=== PATIENT | male | born 1975 | race Caucasian/White ===

== ENCOUNTER 2018-08-08 16:47 | Emergency (ER) | payer SELFPAY ==
[~2018-08-08] VITALS: Ht 170.2 cm; Wt 65.8 kg
[2018-08-08 17:25] VITALS: BP 136/87
--- NOTE | 2018-08-08 17:28 | NUR ---
pt w/ vss ambulates w/ steady gait to the lobby to wait for a bed.
--- NOTE | 2018-08-08 18:24 | NUR ---
pt sittting in lobby w/ vss. no new complaints at this time. will contninue to monitor.
--- NOTE | 2018-08-08 18:49 | NUR ---
called, no response
--- NOTE | 2018-08-08 18:52 | NUR ---
pt called again at this time, no response
--- NOTE | 2018-08-08 18:55 | NUR ---
pt lwbs at this time, called again no response
== END 2018-08-08 18:55 | disposition left against medical advice (07) ==
LOC: MED 16:47
DX: S61.411A Laceration without foreign body of right hand, initial encounter (principal); E05.90 Thyrotoxicosis, unspecified without thyrotoxic crisis or storm; W22.01XA Walked into wall, initial encounter; Y93.89 Activity, other specified; Y92.89 Other specified places as the place of occurrence of the external cause; Y99.8 Other external cause status